=== PATIENT | male | born 1940 | race Caucasian/White ===

== ENCOUNTER → 2021-05-29 | Outpatient (CLI) | payer MEDICARE, OTHER ==
[~2021-05-29] MED LIST: ALIGN4 MG PO; CARDIZEM CD180 MG PO; ECOTRIN81 MG PO; FLAGYL500 MG PO; LEVAQUIN500 MG PO; MAGNESIUM GLYCINATE PO; METOPROLOL TART25 MG PO; PEPCID20 MG PO; POTASSIUM CHLO20 MEQ PO; SIMVASTATIN10 MG PO; SINGULAIR10 MG PO; SPIRONOLACTONE25 MG PO
== END ==
LOC: DX 08:56
PROVIDERS: ATTEND Otolaryngology
DX: R13.13 Dysphagia, pharyngeal phase (principal); Z20.822 Contact with and (suspected) exposure to COVID-19; E11.9 Type 2 diabetes mellitus without complications; I10 Essential (primary) hypertension; I25.10 Atherosclerotic heart disease of native coronary artery without angina pectoris; Z98.0 Intestinal bypass and anastomosis status
CPT/HCPCS: 74230; 92526; 92611; U0002